=== PATIENT | female | born 1960 | race Caucasian/White ===

== ENCOUNTER → 2018-10-02 | Outpatient (REF) ==
--- NOTE | 2018-10-03 04:20 | REP ---
Clinical: Pain and disability. Technique: AP, lateral, coned-down views of the lumbosacral spine. Comparison: None. Findings: Lateral view demonstrates Schmorl's node and chronic compression deformity involving the superior endplate of L4. Bulky bridging anterolateral osteophyte at the L2-3 level is also appreciated. Moderate endplate sclerosis and scattered smaller early osteophytic changes are also appreciated. No acute fracture / compression injury or subluxation. Alignment is maintained. Impression: Chronic changes as described above including suspected of old compression deformity at L4. Electronically Signed by Dave Mahan MD 10/03/2018 04:11 A
== END ==
LOC: M SMT 14:52
PROVIDERS: ATTEND Internal Medicine
DX: M51.46 Schmorl's nodes, lumbar region (principal)

== ENCOUNTER → 2019-05-27 | Outpatient (REF) | payer OTHER ==
[2019-06-04 14:27] LABS: HPV HYBRID CAPTURE II Negative (Negative)
== END ==
LOC: M LAB LCGH 12:08
PROVIDERS: ATTEND Obstetrics & Gynecology
DX: Z12.4 Encounter for screening for malignant neoplasm of cervix (principal); R87.610 Atypical squamous cells of undetermined significance on cytologic smear of cervix (ASC-US)

== ENCOUNTER → 2020-04-10 | Outpatient (REF) | payer OTHER | LOC: M LAB REF 17:05 | PROVIDERS: ATTEND Nurse Practitioner Family | DX: N39.0 Urinary tract infection, site not specified (principal) ==

== ENCOUNTER → 2020-04-15 | Outpatient (REF) | payer OTHER ==
[2020-04-15 14:18] LABS: APPEARANCE, URINE CLEAR (CLEAR); BACTERIA, URINE AUTO NEGATIVE (NEGATIVE); BILIRUBIN, URINE AUTO NEGATIVE (NEGATIVE); BLOOD, URINE BLOOD 1+ (NEGATIVE); COLOR, URINE YELLOW (YELLOW); GLUCOSE, URINE (UA) AUTO 3+ mg/dL (NEGATIVE); KETONE, URINE AUTO NEGATIVE (NEGATIVE); LEUKOCYTE ESTERASE, URINE AUTO 3+ (NEGATIVE); NITRITE, URINE AUTO NEGATIVE (NEGATIVE); PROTEIN, URINE AUTO 1+ mg/dL (NEGATIVE); RBC, URINE AUTO 4 /HPF (0-3); SPECIFIC GRAVITY URINE AUTO 1.021 (1.002-1.035); SQUAMOUS EPITHELIAL CELL UR AU 1 /HPF (0-6); UROBILINOGEN, URINE AUTO 0.2 mg/dL (0.0-2.0); WBC, URINE AUTO 35 /HPF (0-3)
== END ==
LOC: M SMT 13:18
PROVIDERS: ATTEND Nurse Practitioner Family
DX: R30.0 Dysuria (principal)

== ENCOUNTER → 2020-04-29 | Outpatient (CLI) | payer OTHER ==
[~2020-04-29] MED LIST: ISOVUE-370 76% 100ML VIAL As Ordered ONE
--- NOTE | 2020-05-04 14:13 | REP ---
CT ABDOMEN AND PELVIS WITHOUT AND WITH INTRAVENOUS (IV) CONTRAST: WITHOUT ORAL CONTRAST. CT UROGRAPHY PROTOCOL HISTORY: Microscopic hematuria. COMPARISON CT STUDY: None. CT CONTRAST DOSE: 100 mL of intravenous [id number]. CT FINDINGS: Preliminary digital greenskeeper laborer radiograph shows large gallstones in the right upper quadrant, a normal bowel gas pattern, and old wedge compression deformity at L4 vertebral body with prominent discogenic spurring anteriorly at L2-3. On axial images, the lung bases show minimal fibrotic changes, but are otherwise clear. There is no evidence of pleural effusion or upper abdominal ascites. Large densely calcified gallstones are confirmed filling the lumen of the gallbladder. There is a granulomatous calcification in the left lobe of the liver. No liver mass lesion is seen. The liver is not enlarged. Spleen is normal in size and homogeneous in texture. Normal adrenal glands are seen. No abnormality is noted in the pancreas. 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 Normal caliber aorta is seen. No retroperitoneal mass or adenopathy is seen. Normal appendix is observed. No uterine or ovarian lesion is seen. Urinary bladder shows no evidence of filling defect, mass, or calculus. No abdominal wall defect is seen. There is fairly impressive moderate pattern of renal sinus lipomatosis in this patient, which appears to splay the renal cortical mantle on axial and coronal images. There is no evidence of hydronephrosis. There is mild diffuse cortical atrophy. The kidneys enhance symmetrically. No renal calculus is seen. No renal cyst is observed. On delayed scan images, there is minimal deformity of the intrarenal collecting system associated with the renal sinus lipomatosis. Ureters describe a normal course to the bladder. No filling defect is seen in the upper tract collecting systems. On bone window settings, the chronic wedge-shaped deformity at L4 is seen on multiplanar reformation images. No acute bony abnormality is appreciated. IMPRESSION: Prominent pattern of renal sinus lipomatosis, which is nonspecific and may reflect chronic inflammation. No evidence of renal mass or calculus disease. No abnormality in the ureters or bladder. MTDD
== END ==
LOC: M RAD 15:38
PROVIDERS: ATTEND Nurse Practitioner Family
DX: R31.29 Other microscopic hematuria (principal)
CPT/HCPCS: 74178; Q9967

== ENCOUNTER → 2020-09-01 | Outpatient (REF) | LOC: M LAB LCGH 14:52 | DX: Z00.00 Encounter for general adult medical examination without abnormal findings (principal) ==